=== PATIENT | male | born 1970 | race Caucasian/White ===

== ENCOUNTER 2016-08-23 08:28 | Day surgery (SDC) | payer BC, OTHER ==
--- NOTE | ~2016-08-23 | OP ---
Record Of Operation [facility] [address] [place]. [address] NAME: BONNIE BROWN : 70 STATUS : REG [facility] PAT#: [id number] AGE: 46 ADM/REG DATE : 08/23/16 MR#: [id number] REPORT SERV DATE: 08/23/16 DICTATED BY: MARLEEN MCFADDEN DATE: 08/23/16 REPORT STATUS : Draft TRANSCRIBED BY: MODL DATE: 08/23/16 DATE OF PROCEDURE: 08/23/2016 PROCEDURE: Bronchoscopy for bronchoalveolar lavage, tracheostomy change. PREOPERATIVE DIAGNOSIS: Chronic respiratory failure. POSTOPERATIVE DIAGNOSIS: Chronic respiratory failure. INDICATION FOR PROCEDURE: Surveillance bronchoscopy for chronic bronchitis, tracheostomy change, evaluation of subglottic stenosis. PROCEDURE NOTE: The patient was brought to the bronchoscopy suite. Anesthesia provided his sedation. Prior to procedure, the patient notes that he was only awake once using conscious sedation for these tracheostomy exchanges, however, requires to be given propofol. We began the procedure by evaluating the upper airway and subglottic area. He had significant amount of upper airway edema, actually quite difficult to find the vocal cords. However, the subglottic area did not have any significant stenosis. We then changed the tracheostomy to a 5.0 Shiley XLT proximal. We then conducted a bronchoscopy, the patient had findings of chronic bronchitis. We conducted a bronchoalveolar lavage of the right middle lobe, due to the size of bronchoscope, he clearly had leakage and this is most likely more considered a bronchial wash rather than a bronchoalveolar lavage. He tolerated the procedure well. OUTCOME: Successful bronchoscopy, upper airway examination, bronchoalveolar lavage-washing, and tracheostomy change. HFQ/JULYL Marleen Mcfadden MD / [id number] CC: MD Clayton Osorio M.D.
[~2016-08-23 08:28] MED LIST: ADDER10 PO; ADDERALL12.5 MG PO; ALPHAGAN P0.1 % OP; ALPHAGAN P0.1 % OPH; AMLACTIN12 % EX; ASA5GR PO; ASABAYER PO; BACDS PO; BISR PR; CARDCD240 PO; CELEXA20 PO; CENTRUM PO; CENTRUM TAB1 TAB PO; CITRACAL PO; CYANO1000T PO; DEPO-TESTOS100 MG/M1 IM; DEPO-TESTOS100 MG/ML IM; DUONEB INH; EFFEX37.5 PO; EFFEX75 PO; FERGON240 MG PO; FERROUS SULF325 M1 PO; FLEX PO; FOLIC ACID PO; FOLIC ACID400 MC1 PO; FOLIC PO; HEMOCYTE PO; HEMOCYTE324 MG PO; IRON325 MG PO; K-TABS10 MEQ PO; KLONO1 PO; L40 PO; L80 PO; LEVOTHYROXIN137 MCG PO; LEVOTHYROXIN150 MCG PO; LOP25 PO; MOBIC15 MG PO; MULTIPLE VIT PO; NORCO1 TA1 PO; PCET PO; PEP20 PO; PHENTERMINE37.5 MG PO; PR25 PO; PRILO PO; PRILOSEC40 MG PO; PRIM50B PO; PRIN10 PO; PROTONIX PO; REQUIP2 PO; T PO; TOPAMAX50 MG PO; TOPXL100 PO; TOPXL50 PO; ULTRAM50 PO; VIB100 PO; VISINE-A EYE AL15 ML OPH; VITAMIN B-121000 MC1 SL; VITAMIN B-1500 MG PO; VITAMIN D1000 UNI1 PO; VITAMIN D31000 UNIT PO; VITC500 PO; Z100 PO; Z5 PO; ZESTORETIC PO; ZESTORETIC1 TAB PO; ZITHROMAX500 MG PO; ZOL100 PO; [UNRECOGNIZED DRUG - REMARK] OP
[2016-08-23 08:48] LABS: HEMATOCRIT 30.2 % (40.0-51.0); HEMOGLOBIN 8.8 g/dL (13.6-17.8); MEAN CORPUS HGB CONC 29.1 g/dL (32.0-36.0); MEAN CORPUSCULAR HEMOGLOB 29.2 pg (26.0-34.0); MEAN PLATELET VOLUME 9.7 fL (9.2-13.0); RBC DISTRIBUTION WIDTH 16.3 % (12.0-16.0); RED CELL COUNT 3.01 10/6/uL (4.7-6.1)
[2016-08-23 08:54] LABS: INTERNATIONAL NORMAL RATI 1.2 UNITS (-); MANUAL DIFF YES %; MEAN CORPUSCULAR VOLUME 100.3 fL (80-100); PARTIAL THROMBO TIME 32.1 SEC (22.5-37.2); PLATELET COUNT 357 10/3/uL (150-400); PROTIME (NOT ORD) 14.6 SEC (12.0-14.5); WHITE BLOOD CELLS 11.8 10/3/uL (4.5-10.5)
[2016-08-23 09:04] LABS: CALCIUM, SERUM 7.9 MG/DL (8.5-10.4); CHLORIDE, SERUM 97 MMOL/L (96-112); CO2 (CARBON DIOXIDE) 30 MMOL/L (24-34); CREATININE 2.27 MG/DL (0.70-1.30); GFR AFRICAN AMERICAN 39 ML/MIN (>=60); GFR NON AFRICAN AMERICAN 33 ML/MIN (>=60); SODIUM, SERUM 141 MMOL/L (135-148)
[2016-08-23 09:05] LABS: BUN (BLOOD UREA NITROGEN) 28 MG/DL (6-23); GLUCOSE, SERUM 110 MG/DL (60-99); POTASSIUM, SERUM 3.5 MMOL/L (3.5-5.3)
[2016-08-23 11:16] LABS: BAND NEUTROPHILS 2 %; EOSINOPHILS 1 %; EOSINOPHILS ABSOLUTE (CALC) 0.12 10/3/uL (0.0-0.53); LYMPHOCYTES 18 %; LYMPHOCYTES ABSOLUTE (CALC) 2.12 10/3/uL (0.67-4.30); MONOCYTES 27 %; MONOCYTES ABSOLUTE (CALC) 3.19 10/3/uL (0.21-1.20); NEUTROPHILS ABSOLUTE (CALC) 6.37 10/3/uL (2.02-8.40); PLATELET ESTIMATE SLT INC (ADEQUATE); SEGMENTED NEUTROPHIL (0) 52 %; TOTAL NUCLEATED CELLS 100
[2016-08-23 11:17] LABS: ELLIPTOCYTES 1+ (3-10/OIF) (0-2/OIF); HYPOCHROMIA 1+ (3-10/OIF) (0-2/OIF); MACROCYTES 1+ (5-10/OIF) (0-5/OIF)
[2017-01-07] MEDS ORDERED: ADDERALL12.5 MG PO (03:20)
[2017-01-07] MEDS ORDERED: T PO (03:20)
[2017-01-07] MEDS ORDERED: Z100 PO (03:21)
[2017-01-07] MEDS ORDERED: ASABAYER PO (03:21)
[2017-01-07] MEDS ORDERED: L80 PO (03:23)
[2017-01-07] MEDS ORDERED: SYN.15 PO (03:24)
[2017-01-07] MEDS ORDERED: MULTIVIT/MIN PO (03:25)
[2017-01-07] MEDS ORDERED: VITC500 PO (03:25)
[2017-01-07] MEDS ORDERED: HEMOCYTE324 MG PO (03:30)
[2017-01-07] MEDS ORDERED: [UNRECOGNIZED DRUG - OTHER] PO (03:31)
[2017-01-07] MEDS ORDERED: CALCIUM PO (03:31)
[2017-01-07] MEDS ORDERED: CYANO1000T PO (03:32)
[2017-01-07] MEDS ORDERED: Z5 PO (03:33)
[2017-01-07] MEDS ORDERED: LOP100 PO (03:37)
[2017-01-07] MEDS ORDERED: KLONO1 PO (03:38)
[2017-01-07] MEDS ORDERED: KDUR10 PO (03:43)
[2017-01-07] MEDS ORDERED: ULTRAM50 PO (03:44)
[2017-01-07] MEDS ORDERED: ZOL50 PO (03:45)
[2017-01-07] MEDS ORDERED: FOLATE 400 MCG PO (03:47)
[2017-01-07] MEDS ORDERED: PEP20 PO (03:49)
[2017-01-07] MEDS ORDERED: MELATONIN5 M1 PO (03:49)
[2017-01-07] MEDS ORDERED: THIAMINE PO (03:51)
[2017-01-07] MEDS ORDERED: ZITHROMAX500 MG PO (03:52)
[2017-01-07] MEDS ORDERED: TESTOSTERONE IM (16:24)
[2017-01-07] MEDS ORDERED: SYN075 PO (16:25)
[2017-01-18] MEDS ORDERED: P10 PO (13:03)
[2017-01-18] MEDS ORDERED: BACTRIM DS1 TAB PO (13:03)
[2017-01-18] MEDS ORDERED: SPIRIVA INH (13:03)
[2017-01-18] MEDS ORDERED: ALBUTEROL5 INH (13:06)
[2017-01-18] MEDS ORDERED: FESO4 PO (13:07)
[2017-01-18] MEDS ORDERED: TESS PO (13:07)
[2017-01-18] MEDS ORDERED: DEXTROMETHORPHAN PO (13:12)
== END 2016-08-23 23:59 | disposition home or self-care (01) ==
LOC: DMU 08:28
PROVIDERS: Anesthesiology; Internal Medicine Critical Care Medicine
PROC: 0B9D8ZX Drainage of Right Middle Lung Lobe, Via Natural or Artificial Opening Endoscopic, Diagnostic (ICD-10-PCS; principal; 2016-08-23 11:00)
DX: J96.10 Chronic respiratory failure, unspecified whether with hypoxia or hypercapnia (principal); E66.01 Morbid (severe) obesity due to excess calories; J39.8 Other specified diseases of upper respiratory tract; I10 Essential (primary) hypertension; I50.9 Heart failure, unspecified; E03.9 Hypothyroidism, unspecified; G47.33 Obstructive sleep apnea (adult) (pediatric); D64.9 Anemia, unspecified; I13.0 Hypertensive heart and chronic kidney disease with heart failure and stage 1 through stage 4 chronic kidney disease, or unspecified chronic kidney disease; N18.9 Chronic kidney disease, unspecified; M10.9 Gout, unspecified; E66.2 Morbid (severe) obesity with alveolar hypoventilation; G25.81 Restless legs syndrome; Z88.0 Allergy status to penicillin; Z88.5 Allergy status to narcotic agent
CPT/HCPCS: 80048; 85025; 85610; 85730; 87015; 87070; 87077; 87102; 87116; 87186; 87205; 93005; J3010

== ENCOUNTER 2016-08-29 10:41 | Day surgery (SDC) | payer BC, OTHER ==
[2017-01-07] MEDS ORDERED: ADDERALL12.5 MG PO (03:20)
[2017-01-07] MEDS ORDERED: T PO (03:20)
[2017-01-07] MEDS ORDERED: ASABAYER PO (03:21)
[2017-01-07] MEDS ORDERED: Z100 PO (03:21)
[2017-01-07] MEDS ORDERED: L80 PO (03:23)
[2017-01-07] MEDS ORDERED: SYN.15 PO (03:24)
[2017-01-07] MEDS ORDERED: VITC500 PO (03:25)
[2017-01-07] MEDS ORDERED: MULTIVIT/MIN PO (03:25)
[2017-01-07] MEDS ORDERED: HEMOCYTE324 MG PO (03:30)
[2017-01-07] MEDS ORDERED: [UNRECOGNIZED DRUG - OTHER] PO (03:31)
[2017-01-07] MEDS ORDERED: CALCIUM PO (03:31)
[2017-01-07] MEDS ORDERED: CYANO1000T PO (03:32)
[2017-01-07] MEDS ORDERED: Z5 PO (03:33)
[2017-01-07] MEDS ORDERED: LOP100 PO (03:37)
[2017-01-07] MEDS ORDERED: KLONO1 PO (03:38)
[2017-01-07] MEDS ORDERED: KDUR10 PO (03:43)
[2017-01-07] MEDS ORDERED: ULTRAM50 PO (03:44)
[2017-01-07] MEDS ORDERED: ZOL50 PO (03:45)
[2017-01-07] MEDS ORDERED: FOLATE 400 MCG PO (03:47)
[2017-01-07] MEDS ORDERED: MELATONIN5 M1 PO (03:49)
[2017-01-07] MEDS ORDERED: PEP20 PO (03:49)
[2017-01-07] MEDS ORDERED: THIAMINE PO (03:51)
[2017-01-07] MEDS ORDERED: ZITHROMAX500 MG PO (03:52)
[2017-01-07] MEDS ORDERED: TESTOSTERONE IM (16:24)
[2017-01-07] MEDS ORDERED: SYN075 PO (16:25)
[2017-01-18] MEDS ORDERED: SPIRIVA INH (13:03)
[2017-01-18] MEDS ORDERED: BACTRIM DS1 TAB PO (13:03)
[2017-01-18] MEDS ORDERED: P10 PO (13:03)
[2017-01-18] MEDS ORDERED: ALBUTEROL5 INH (13:06)
[2017-01-18] MEDS ORDERED: FESO4 PO (13:07)
[2017-01-18] MEDS ORDERED: TESS PO (13:07)
[2017-01-18] MEDS ORDERED: DEXTROMETHORPHAN PO (13:12)
== END 2016-08-29 18:56 | disposition home or self-care (01) ==
LOC: IMGHOLD 10:41 → RADHOLD 13:12
PROVIDERS: Anesthesiology
PROC: B03BZZZ Magnetic Resonance Imaging (MRI) of Spinal Cord (ICD-10-PCS; principal; 2016-08-29)
PROC: B030ZZZ Magnetic Resonance Imaging (MRI) of Brain (ICD-10-PCS; 2016-08-29)
DX: M54.42 Lumbago with sciatica, left side (principal); M54.41 Lumbago with sciatica, right side; I10 Essential (primary) hypertension; E66.9 Obesity, unspecified; E07.9 Disorder of thyroid, unspecified; F90.9 Attention-deficit hyperactivity disorder, unspecified type; F32.9 Major depressive disorder, single episode, unspecified; M81.0 Age-related osteoporosis without current pathological fracture; M10.9 Gout, unspecified; N28.9 Disorder of kidney and ureter, unspecified; F43.10 Post-traumatic stress disorder, unspecified; G47.30 Sleep apnea, unspecified; K21.9 Gastro-esophageal reflux disease without esophagitis; F41.9 Anxiety disorder, unspecified; Z90.49 Acquired absence of other specified parts of digestive tract; Z98.890 Other specified postprocedural states; Z88.1 Allergy status to other antibiotic agents; Z88.5 Allergy status to narcotic agent; Z88.2 Allergy status to sulfonamides
CPT/HCPCS: 70551; 72148; J2250; J3010

== ENCOUNTER 2016-09-09 17:41 | Inpatient (IN) | payer BC, OTHER ==
--- NOTE | ~2016-09-09 | HP ---
History And Physical [place] [address] [facility] [place]. [address] NAME: BONNIE BROWN : 70 STATUS : ADM [place] PAT#: [id number] AGE: 46 ADM/REG DATE : 09/09/16 MR#: [id number] REPORT SERV DATE: 09/10/16 DICTATED BY: SHERRY MARROQUIN DATE: 09/09/16 REPORT STATUS : Draft TRANSCRIBED BY: MODL DATE: 09/09/16 DATE OF ADMISSION: 09/09/2016 REASON FOR ADMISSION: Complication of tracheostomy. HISTORY OF PRESENT ILLNESS: Mr. Brown is a 46-year-old male with obesity with sleep apnea, hypoventilation syndrome with chronic tracheostomy. He has actually had it replaced 18 times. He has had course complicated also by cor pulmonale, chronic anasarca, and frequent stasis dermatitis wounds with associated cellulitis. At [facility] today with the tracheostomy having come out again once again accidentally, unable to be replaced by the emergency department and he is referred here to be seen by Pulmonology. This particular trach was a 5.0 XLT and has only been in for 2 weeks after being placed by Dr. Mcfadden. He has had a nonproductive cough without phlegm, without bleeding. It has required higher oxygen than usual since the tracheostomy came out, but does not feel short of breath at this time. He denies any chest pain. Denies abdominal pain. No nausea or vomiting. Does however have chronic leg pain, chronic wounds in his legs, difficulty sleeping in fact he sleeps in a chair most of the time and the legs have become more swollen. He has his dressings changed twice weekly. He denies any bleeding. Denies any neurological deficits other than some hand numbness which sounds like carpal tunnel syndrome. REVIEW OF SYSTEMS: Negative. PAST MEDICAL HISTORY: As mentioned above. MEDICATIONS: 1. Adderall. 2. Tylenol. 3. Allopurinol. 4. Aspirin. 5. Calcium. 6. Klonopin. 7. Testosterone. 8. Iron. 9. Lasix. 10.Synthroid. 11.Metolazone. 12.Metoprolol. 13.Multivitamins. 14.Potassium. 15.Pepcid. 16.Zoloft. 17.Tramadol. 18.Numerous vitamins and mineral supplements. ALLERGIES: TO PENICILLIN, ATIVAN, MORPHINE, BACTRIM, AND CEPHALOSPORINS. History And Physical [address] [address] NAME: BONNIE BROWN : [birth year] STATUS : ADM Anton PAT#: [id number] AGE: 46 ADM/REG DATE : 09/09/16 MR#: [id number] REPORT SERV DATE: 09/10/16 DICTATED BY: SHERRY MARROQUIN DATE: 09/09/16 REPORT STATUS : Draft TRANSCRIBED BY: DANYELLE DATE: 09/09/16 FAMILY HISTORY: Positive for chronic kidney disease. SOCIAL HISTORY: The patient has no tobacco, alcohol, or drug history. He is , but lives with his mother. PHYSICAL EXAMINATION: VITAL SIGNS: On presentation, blood pressure 140/73, pulse 112, respiratory rate 20, afebrile. GENERAL: Comfortable, but morbidly obese white male. Alert and oriented x3, in no apparent distress. HEENT: Pupils equal, round, and reactive to light. Extraocular movements are intact. No cranial nerve deficits. Moist mucous membranes. Very crowded oropharynx. NECK: Revealed the tracheostomy site is only a small hole, but no associated discharge. Unable to assess jugular venous pulsations. CARDIAC: Regular rate and rhythm. No murmurs, gallops, or rubs. LUNGS: Clear to auscultation bilaterally. Poor excursion. ABDOMEN: Obese, nontender, and nondistended. Bowel sounds normoactive. There was pale striae noted on his flanks. EXTREMITIES: Revealed 3+ edema despite Cuna boots. He had skin breakdown and erythema proximal to the boots. He had good pulses and capillary refill in his toes distally. NEUROLOGIC: Normal sensory motor function in all four extremities grossly. SKIN: Warm and dry. PSYCHIATRIC: He is appropriate. LABORATORY EVALUATION: Pending at this time. Chest x-ray is pending. ASSESSMENT/PLAN: 1. Tracheostomy complication. Pulmonology will see him regarding replacement of the tracheostomy. X-ray will be checked, I do not anticipate any antibiotic therapy or other issues. He will only be admitted for observation status. 2. Sleep apnea, obesity hypoventilation syndrome with cor pulmonale due to his morbid obesity. The patient has skin breakdown and wound of his legs, he is scheduled to have his bandages changed tomorrow. Anyway I will go ahead and plan on undressing those and resuming, but a diuretic infusion will be given overnight changing over to Demadex which is likely to be much better absorbed in this morbidly obese man. Obviously the main culprit however is his body positioning, sleeping in a chair makes effective diuresis management of these wounds nearly impossible. 3. History of iron deficiency anemia. The patient is on oral iron supplement, we will check his iron levels. He may or may not benefit from that any further. Intravenous iron will be more effective than p.o. ELIJAH/DANYELLE Sherry Grijalva History And Physical [address] [address] NAME: BONNIE BROWN : 70 STATUS : ADM Anton PAT#: [id number] AGE: 46 ADM/REG DATE : 09/09/16 MR#: [id number] REPORT SERV DATE: 09/10/16 DICTATED BY: SHERRY MARROQUIN DATE: 09/09/16 REPORT STATUS : Draft TRANSCRIBED BY: DANYELLE DATE: 09/09/16 Isabelle Marroquin / [id number] CC: Isabelle Zarate M.D. Nathan B. Wyatt, MD John Gwin Jr., M.D.
--- NOTE | ~2016-09-09 | EGD ---
EGD REPORT [facility] [address] [address] NAME: CHRIS BROWN : 70 STATUS : ADM Anton PAT#: [id number] AGE: 46 ADM/REG DATE : 09/09/16 MR#: [id number] REPORT SERV DATE: 09/10/16 DICTATED BY: ОЛЬГА MARTINEZ DATE: 09/10/16 REPORT STATUS : Draft [facility]: [facility] DATE: 09/10/16 Pulmonology Patient Name: Chris Brown Procedure Date: 09/10/2016 1:16 PM Date of : 1970 Attending MD: MAX MARTINEZ MD Procedure Date No Time: 09/10/2016 Procedure: Flexible rigid bronchoscopy Indications: Tracheal stenosis, tracheostomy dislodgement, unable to place 50 Proximal XLT into by the bedside. Providers: MAX MARTINEZ MD Referring MD: TUSHAR LOPEZ Medicines: Lidocaine 2% 20 mL Complications: No immediate complications Procedure: Pre-Anesthesia Assessment: - A History and Physical has been performed. Patient meds and allergies have been reviewed. The risks and benefits of the procedure and the sedation options and risks were discussed with the patient. All questions were answered and informed consent was obtained. Patient identification and proposed procedure were verified prior to the procedure by the physician and the nurse in the procedure room. Mental Status Examination: alert and oriented. Airway Examination: Mallampati Class IV (tongue obstructs view of the soft palate). Respiratory Examination: poor air movement. CV Examination: normal and RRR, no murmurs, no S3 or S4. ASA Grade Assessment: IV - A patient with severe systemic disease that is a constant threat to life. After reviewing the risks and benefits, the patient was deemed in satisfactory condition to undergo the procedure. The anesthesia plan was to use general anesthesia. Immediately prior to administration of medications, the patient was re-assessed for adequacy to receive sedatives. The heart rate, respiratory rate, oxygen saturations, blood pressure, adequacy of pulmonary ventilation, and response to care were monitored throughout the procedure. The physical status of the patient was re-assessed after the procedure. After obtaining informed consent, the BF [id number] was introduced through the mouth, via laryngeal mask airway and advanced to the tracheobronchial tree. the BF [id number] was introduced through the tracheostomy and advanced to the tracheobronchial tree. the BF [id number] was introduced through the rigid bronchoscope (after telescope was removed) and advanced EGD REPORT [address] [address] NAME: CHRIS BROWN : 70 STATUS : ADM Anton PAT#: [id number] AGE: 46 ADM/REG DATE : 09/09/16 MR#: [id number] REPORT SERV DATE: 09/10/16 DICTATED BY: ОЛЬГА MARTINEZ DATE: 09/10/16 REPORT STATUS : Draft TRANSCRIBED BY: [facility] DATE: 09/10/16 to the tracheobronchial tree. The procedure was accomplished without difficulty. The patient tolerated the procedure well. Findings: The laryngeal mask airway is in normal position. The vocal cords move normally with breathing. The subglottic space is slightly stenosed in its diameter. The stoma was dilated with a CRE balloon to 8 mm OD without complication. A 6.0 ETT tube could not be passed. A 4.0 ETT was easily passed through the airway. Granulation tissue at the stoma was biopsied and sent for histopathology. The patient was then reintubated with a 12 mm rigid Dumon bronchoscope in the usual atraumatic fashion. The airway was dilated using the rigid bronchoscope and a 10-11-12 [employer] CRE balloon to 12 mm OD. Using a Blue Rhino kit, the stoma was then dilated to 32 Jordanian under direct visualized and a 5.0 Proximal XLT was passed with ease and secured. Impression: Flexible Rigid Bronchoscopy for airway and stoma dilation and 5.0 proximal XLT placement. Recommendation: - Await test results. - Follow up with bronchoscopist tomorrow. - Follow up with [facility], Dr. Tushar Eng Attending Participation: I personally performed the entire procedure. MAX MARTINEZ MD 09/10/2016 2:32 PM This report has been signed electronically. Number of Addenda: 0 Note Initiated On: 09/10/2016 1:16 PM [address] [address]
--- NOTE | ~2016-09-09 | DS ---
Discharge Summary [facility] [address] [facility] [place]. [address] NAME: BONNIE BROWN : 70 STATUS : DIS Anton PAT#: [id number] AGE: 46 ADM/REG DATE : 09/09/16 MR#: [id number] REPORT SERV DATE: 09/12/16 DICTATED BY: ROSE LOWE DATE: 09/11/16 REPORT STATUS : Draft TRANSCRIBED BY: MODL DATE: 09/11/16 ADMISSION DATE: 09/09/2016 DISCHARGE DATE: 09/11/2016 REASON FOR ADMISSION: Tracheostomy complication. HISTORY OF PRESENT ILLNESS: Please refer to Dr. Tamez's history and physical dated 09/09/2016 for complete details regarding the patient's admission. The patient was admitted to the Hospitalist Service for management of his trach complication. The patient initially presented to [facility] having accidentally removed his trach as a blanket got caught on a portion of it. Went to [facility], they were unable to place his trach, and therefore, the patient was sent to [facility] for further evaluation. The patient has had multiple trachs placed in the past. The last trach being placed [address] Mcfadden. At this time, Dr. Ha was on pulmonary consult, evaluated the patient and Dr. Ha was unable to place a 50 proximal XLT at the bedside. Therefore, the patient was taken to the endoscopy suite, reintubated with a 12 mm rigid bronchoscope in an atraumatic fashion. Airway was dilated using a rigid bronchoscope. The stoma was then dilated and a 5.0 proximal XLT was passed with ease and secured. The patient was monitored overnight. He had a little bit of secretions through his trach which was easily suctioned out. He was weaned down to his baseline of 3 L nasal cannula saturating 99%. He is stable to be discharged. He was discharged in stable condition to follow up with Dr. Ha along with Dr. Gray today as he has already scheduled outpatient appointment. DISCHARGE DIAGNOSES: Trach complication, now with replacement of a new trach; tracheal stenosis; obesity; hypoventilation syndrome; obstructive sleep apnea; morbid obesity; chronic hypoxic respiratory failure, 3 L nasal cannula; history of iron-deficiency anemia; chronic kidney disease stage 3, and hypothyroidism. PROCEDURES: Include trach replacement. CONSULTATION: Dr. Ha. DISCHARGE MEDICATIONS: Include allopurinol 100 mg with lunch, Adderall 12.5 mg twice a day, aspirin 325 mg once a day, famotidine 40 mg every evening, levothyroxine 150 mcg before breakfast, melatonin p.r.n., Zaroxolyn 5 mg after lunch, Lasix 80 mg with lunch, potassium Klor-Con 10 mEq daily, sertraline 150 mg daily, Klonopin 1 mg daily, Zithromax 500 mg every day for long-term therapy, Tylenol p.r.n., calcium citrate daily, ferrous fumarate 648 mg every morning, multivitamin daily, Ultram p.r.n., vitamin B12 daily, vitamin C daily, vitamin B after lunch, folic acid 1 mg after lunch, and metoprolol tartrate 100 mg once a day. PAMELLA/DANYELLE Rose Lawrence Discharge Summary [address] [address] NAME: BONNIE BROWN : 70 STATUS : DIS Anton PAT#: [id number] AGE: 46 ADM/REG DATE : 09/09/16 MR#: [id number] REPORT SERV DATE: 09/12/16 DICTATED BY: ROSE LOWE DATE: 09/11/16 REPORT STATUS : Draft TRANSCRIBED BY: DANYELLE DATE: 09/11/16 MD Sonya / [id number] CC: MD Tom Gonzalez D.O.
--- NOTE | ~2016-09-09 | CN ---
Consultation Report [facility] [address] [facility] [place]. [address] NAME: CHRIS BROWN : 70 STATUS : ADM Anton PAT#: [id number] AGE: 46 ADM/REG DATE : 09/09/16 MR#: [id number] REPORT SERV DATE: 09/10/16 DICTATED BY: NOE MARTINEZ DATE: 09/10/16 REPORT STATUS : Draft TRANSCRIBED BY: MODDamien DATE: 09/10/16 CONSULTATION DATE OF CONSULTATION: Dear Dr. Tamez: Thank you for requesting my opinion regarding evaluation and management of Mr. Chris Brown's major complex airways. Mr. Brown is a 46-year-old gentleman, well known to me with a significant past medical history of obstructive sleep apnea, obesity hypoventilation syndrome with chronic tracheostomy, who presented to the [facility] yesterday with his tracheostomy being dislodged once again. The ER physician contacted me and stated that his proximal XLT trach had been in place for only two weeks after being placed by Dr. Mcfadden. He denied any significant shortness of breath, nausea, vomiting, diarrhea, or constipation. He has had multiple issues regarding his tracheostomy, complicated by subglottic stenosis and repeated tracheostomy exchanges, requiring general anesthesia. Other issues are that he has chronic leg pain and chronic wounds on his legs, and he sleeps mostly in a chair. REVIEW OF SYSTEMS: A detailed 14-point review of systems was completed. Pertinent positives and negatives are listed above. PAST MEDICAL HISTORY: 1. Respiratory failure secondary to VALERIO and OHS, status post prolonged mechanical ventilation, complicated by suprastomal granulation tissue. The patient underwent St T-tube placement, which was removed. Suprastomal stenosis is secondary to post-intubation tracheal stenosis. His normal tracheostomy size is a 5.0 proximal XLT Shiley Covidien trach. 2. Morbid obesity. 3. Deconditioning. 4. Intertrigo. 5. Chronic home O2 dependence and nocturnal BiPAP, chronic respiratory failure. 6. Hypothyroidism. 7. Anemia. 8. Acid reflux disease. PAST SURGICAL HISTORY: As above. Prior history of PEG placement and central venous catheter insertion. ALLERGIES: PENICILLIN, LORAZEPAM, AND MORPHINE. HOME MEDICATIONS: Reviewed and located in the paper chart. Consultation Report [facility] [address] [place]. [address] NAME: CHRIS BROWN : 70 STATUS : ADM Anton PAT#: [id number] AGE: 46 ADM/REG DATE : 09/09/16 MR#: [id number] REPORT SERV DATE: 09/10/16 DICTATED BY: NOE MARTINEZ DATE: 09/10/16 REPORT STATUS : Draft TRANSCRIBED BY: MODL DATE: 09/10/16 SOCIAL HISTORY: The patient is a lifelong nonsmoker. He denies any significant alcohol or illicit drug abuse. He has been a long-term patient of my partner, Dr. Og. FAMILY HISTORY: Renal failure. PHYSICAL EXAMINATION: VITAL SIGNS: Reviewed. Afebrile, T current of 97.4, pulse of 100, respirations 20 per minute on 10 L trach mask, blood pressure 134/62 on FiO2 of 60%. GENERAL: Morbidly obese, chronically ill-appearing gentleman. The patient's stoma appears to be reduced in size without the tracheostomy in place. The patient is clearly able to phonate with a strong voice. NECK: No significant trauma or hemorrhage noted at the site of the prior ER physician's attempts at placing tracheostomy. HEENT: Posterior oropharynx is clear. CARDIOVASCULAR: Regular rate and rhythm. S1 and S2 present. LUNGS: Diminished breath sounds bilaterally. Air is leaking from the tracheostomy site. ABDOMEN. Protuberant, nontender, nondistended, soft. Positive bowel sounds. EXTREMITIES: Edematous and large with venous stasis changes. SKIN: No new rashes, lesions, or ulcers. PSYCHIATRIC: Alert and oriented x3. Appropriate mood and affect. Appropriate insight and judgment. NEUROLOGIC: 5/5 strength in upper and lower extremities. Cranial nerves 2 through 12 intact. Gait not tested. DTRs not performed. LABORATORY DATA: White count of 6, hemoglobin of 8.3, platelet count of 257. INR 1.1, PTT of 27.5. Creatinine of 1.22. The patient's potassium has been repleted. IMAGING: Chest x-ray on 09/09/2016, dense cardiomegaly, shallow inspiration, but no obvious acute cardiopulmonary disease. ASSESSMENT AND PLAN: Mr. Chris Brown is a 46-year-old gentleman with a significant past medical history of obstructive sleep apnea, post-intubation tracheal stenosis, status post St T-tube placement, and subsequent 5.0 proximal XLT trach, complicated by repeated procedures requiring tracheostomy exchange, who presents to [facility] as a transfer from [facility] with a dislodged tracheostomy. The outside ER physician attempted to place the trach, but ran into too much "scar tissue." At this point, it is unclear whether the stoma has decreased in size, but appears visibly puckered. There was no obvious edema or trauma noted at this time. The patient is able to completely phonate, and prior bronchoscopy images were reviewed and discussed. The patient's subglottic stenosis appears to be resolved as compared to the prior interventions by me. At this point, Mr. Brown needs cautious tracheostomy placement. He will require a flex and rigid bronchoscopy and possible tracheal dilation and stoma revision to allow for the tracheostomy to be placed. The patient is aware that the procedure is associated with potential life-threatening complications including loss of the airways; life-threatening Consultation Report [address] [place]. [address] NAME: CHRIS BROWN : 70 STATUS : ADM Anton PAT#: [id number] AGE: 46 ADM/REG DATE : 09/09/16 MR#: [id number] REPORT SERV DATE: 09/10/16 DICTATED BY: NOE MARTINEZ DATE: 09/10/16 REPORT STATUS : Draft TRANSCRIBED BY: DANYELLE DATE: 09/10/16 bleeding; lung collapse; respiratory failure; airway tear; injury to the mouth, lips, teeth, gums, posterior oropharynx, neighboring organs; and life-threatening cardiopulmonary arrest. We will attempt to replace the proximal 5.0 XLT trach at the close of the case. A summary of my recommendations are as follows: Proceed with flexible and rigid bronchoscopy and tracheostomy replacement. The patient may require further airway interventions to help place the tracheostomy if there is scar tissue or tracheal stenosis present. Thank you for allowing me to participate in Mr. Brown's care. Plan was discussed with the patient's mother. EVELINA/DANYELLE Noe Martinez M.D. / [id number] CC: Edward Hassan MD
[2016-09-09] MEDS ORDERED: Z100 PO (18:43)
[2016-09-09] MEDS ORDERED: ADDERALL12.5 MG PO (18:43)
[2016-09-09] MEDS ORDERED: T PO (18:43)
[2016-09-09] MEDS ORDERED: ASA5GR PO (18:44)
[2016-09-09] MEDS ORDERED: ZITHROMAX500 MG PO (18:44)
[2016-09-09] MEDS ORDERED: CALCIUM CITRATE +D PO (18:46)
[2016-09-09] MEDS ORDERED: HEMOCYTE324 MG PO (18:46)
[2016-09-09] MEDS ORDERED: KLONO1 PO (18:46)
[2016-09-09] MEDS ORDERED: Z5 PO (18:47)
[2016-09-09] MEDS ORDERED: LEVOTHYROXIN150 MCG PO (18:47)
[2016-09-09] MEDS ORDERED: L80 PO (18:47)
[2016-09-09] MEDS ORDERED: LOP100 PO (18:47)
[2016-09-09] MEDS ORDERED: KLOR-CON 1010 MEQ PO (18:48)
[2016-09-09] MEDS ORDERED: PEP20 PO (18:48)
[2016-09-09] MEDS ORDERED: MULTIVIT/MIN PO (18:48)
[2016-09-09] MEDS ORDERED: ULTRAM50 PO (18:49)
[2016-09-09] MEDS ORDERED: ZOL100 PO (18:49)
[2016-09-09] MEDS ORDERED: VITAMIN B-121000 MC1 PO (18:50)
[2016-09-09] MEDS ORDERED: VITAMIN B-1 PO (18:50)
[2016-09-09] MEDS ORDERED: VITC500 PO (18:50)
[2016-09-09] MEDS ORDERED: FOLIC ACID400 MC1 PO (18:51)
[2016-09-09] MEDS ORDERED: MELATONIN5 M1 PO (18:51)
[2016-09-09] MEDS ORDERED: TOPXL100 PO (18:54)
[2016-09-09 20:06] LABS: BASOPHILS 0 %; EOSINOPHILS 0.8 %; EOSINOPHILS ABSOLUTE 0.05 10/3/uL (0.0-0.53); HEMATOCRIT 27.8 % (40.0-51.0); HEMOGLOBIN 8.3 g/dL (13.6-17.8); IMMATURE GRANULOCYTES 0.5 %; IMMATURE GRANULOCYTES ABSOLUTE 0.03 10/3/uL (0.0-0.11); LYMPHOCYTES 24.2 %; LYMPHOCYTES ABSOLUTE 1.59 10/3/uL (0.67-4.30); MANUAL DIFF NO %; MEAN CORPUS HGB CONC 29.9 g/dL (32.0-36.0); MEAN CORPUSCULAR HEMOGLOB 29.2 pg (26.0-34.0); MEAN CORPUSCULAR VOLUME 97.9 fL (80-100); MEAN PLATELET VOLUME 10.7 fL (9.2-13.0); MONOCYTES 15.1 %; MONOCYTES ABSOLUTE 0.99 10/3/uL (0.21-1.20); NEUTROPHILS 59.4 %; NEUTROPHILS ABSOLUTE 3.91 10/3/uL (2.02-8.40); PLATELET COUNT 257 10/3/uL (150-400); RBC DISTRIBUTION WIDTH 15.8 % (12.0-16.0); RED CELL COUNT 2.84 10/6/uL (4.7-6.1); WHITE BLOOD CELLS 6.6 10/3/uL (4.5-10.5)
[2016-09-09 20:22] LABS: % IRON SAT 10 % (20-50); A/G RATIO 0.6 (0.7-1.9); ALBUMIN 2.7 G/DL (3.5-5.0); ALKALINE PHOSPHATASE 115 U/L (45-117); CALCIUM, SERUM 8.4 MG/DL (8.5-10.4); CHLORIDE, SERUM 103 MMOL/L (96-112); CO2 (CARBON DIOXIDE) 32 MMOL/L (24-34); FERRITIN 206 NG/ML (26-388); GFR AFRICAN AMERICAN 68 ML/MIN (>=60); GFR NON AFRICAN AMERICAN 58 ML/MIN (>=60); GLOBULIN 4.8 G/DL (2.5-4.1); GLUCOSE, SERUM 100 MG/DL (60-99); IRON BINDING CAPACITY 223 MCG/DL (250-450); IRON, SERUM 22 MCG/DL (35-150); POTASSIUM, SERUM 3.4 MMOL/L (3.5-5.3); SGOT(AST) 12 U/L (5-40); SGPT(ALT) 15 U/L (5-65); SODIUM, SERUM 144 MMOL/L (135-148); TOTAL BILIRUBIN 0.2 MG/DL (0-1.2); TOTAL PROTEIN 7.5 G/DL (6.0-8.5)
[2016-09-09 20:23] LABS: BUN (BLOOD UREA NITROGEN) 16 MG/DL (6-23); CREATININE 1.43 MG/DL (0.70-1.30)
[2016-09-10 05:02] LABS: BUN (BLOOD UREA NITROGEN) 14 MG/DL (6-23); CALCIUM, SERUM 8.1 MG/DL (8.5-10.4); CHLORIDE, SERUM 103 MMOL/L (96-112); CO2 (CARBON DIOXIDE) 31 MMOL/L (24-34); CREATININE 1.22 MG/DL (0.70-1.30); GFR AFRICAN AMERICAN 82 ML/MIN (>=60); GFR NON AFRICAN AMERICAN 71 ML/MIN (>=60); GLUCOSE, SERUM 109 MG/DL (60-99); POTASSIUM, SERUM 3.1 MMOL/L (3.5-5.3); SODIUM, SERUM 143 MMOL/L (135-148)
[2016-09-10 09:49] LABS: INTERNATIONAL NORMAL RATI 1.1 UNITS (-); PARTIAL THROMBO TIME 27.5 SEC (22.5-37.2); PROTIME (NOT ORD) 14.2 SEC (12.0-14.5)
[2016-09-10 15:12] LABS: ALLENS TEST Pos; BE (BASE EXCESS) 6.3 MEQ/L (0 +/- 2.5); CARBOXYHEMOGLOBIN 0.2 % (0-3); HCO3 (ACTUAL BICARBONATE) 37.5 MEQ/L (23-27); HEMOBLOGIN CONTENT 10.4 G/DL (14-18); INSTRUMENT SERIAL # 11843; METHEMOGLOBIN 0.4 % (0-3); O2 CONTENT 14.3 VOL% (18-24); OPERATOR ID 32214; PCO2 (CO2 TENSION) 106 MMHG (35-45); PO2 (O2 TENSION) 118 MMHG (79-93); SAMPLE Arterial; pH 7.17 (7.37-7.43)
[2017-01-07] MEDS ORDERED: T PO (03:20)
[2017-01-07] MEDS ORDERED: ADDERALL12.5 MG PO (03:20)
[2017-01-07] MEDS ORDERED: ASABAYER PO (03:21)
[2017-01-07] MEDS ORDERED: Z100 PO (03:21)
[2017-01-07] MEDS ORDERED: L80 PO (03:23)
[2017-01-07] MEDS ORDERED: SYN.15 PO (03:24)
[2017-01-07] MEDS ORDERED: MULTIVIT/MIN PO (03:25)
[2017-01-07] MEDS ORDERED: VITC500 PO (03:25)
[2017-01-07] MEDS ORDERED: HEMOCYTE324 MG PO (03:30)
[2017-01-07] MEDS ORDERED: CALCIUM PO (03:31)
[2017-01-07] MEDS ORDERED: [UNRECOGNIZED DRUG - OTHER] PO (03:31)
[2017-01-07] MEDS ORDERED: CYANO1000T PO (03:32)
[2017-01-07] MEDS ORDERED: Z5 PO (03:33)
[2017-01-07] MEDS ORDERED: LOP100 PO (03:37)
[2017-01-07] MEDS ORDERED: KLONO1 PO (03:38)
[2017-01-07] MEDS ORDERED: KDUR10 PO (03:43)
[2017-01-07] MEDS ORDERED: ULTRAM50 PO (03:44)
[2017-01-07] MEDS ORDERED: ZOL50 PO (03:45)
[2017-01-07] MEDS ORDERED: FOLATE 400 MCG PO (03:47)
[2017-01-07] MEDS ORDERED: PEP20 PO (03:49)
[2017-01-07] MEDS ORDERED: MELATONIN5 M1 PO (03:49)
[2017-01-07] MEDS ORDERED: THIAMINE PO (03:51)
[2017-01-07] MEDS ORDERED: ZITHROMAX500 MG PO (03:52)
[2017-01-07] MEDS ORDERED: TESTOSTERONE IM (16:24)
[2017-01-07] MEDS ORDERED: SYN075 PO (16:25)
[2017-01-18] MEDS ORDERED: P10 PO (13:03)
[2017-01-18] MEDS ORDERED: BACTRIM DS1 TAB PO (13:03)
[2017-01-18] MEDS ORDERED: SPIRIVA INH (13:03)
[2017-01-18] MEDS ORDERED: ALBUTEROL5 INH (13:06)
[2017-01-18] MEDS ORDERED: FESO4 PO (13:07)
[2017-01-18] MEDS ORDERED: TESS PO (13:07)
[2017-01-18] MEDS ORDERED: DEXTROMETHORPHAN PO (13:12)
== END 2016-09-11 15:37 | disposition home or self-care (01) | DRG 167 ==
LOC: 7NO 17:41
PROVIDERS: Internal Medicine
PROC: 0B718ZZ Dilation of Trachea, Via Natural or Artificial Opening Endoscopic (ICD-10-PCS; 2016-09-10)
PROC: 0B21XFZ Change Tracheostomy Device in Trachea, External Approach (ICD-10-PCS; 2016-09-10)
PROC: 0BB18ZX Excision of Trachea, Via Natural or Artificial Opening Endoscopic, Diagnostic (ICD-10-PCS; principal; 2016-09-10 13:40)
DX: J95.03 Malfunction of tracheostomy stoma (principal); J96.11 Chronic respiratory failure with hypoxia; I27.81 Cor pulmonale (chronic); E66.2 Morbid (severe) obesity with alveolar hypoventilation; Z68.44 Body mass index [BMI] 60.0-69.9, adult; G47.33 Obstructive sleep apnea (adult) (pediatric); E03.9 Hypothyroidism, unspecified; L30.4 Erythema intertrigo; K21.9 Gastro-esophageal reflux disease without esophagitis; J39.8 Other specified diseases of upper respiratory tract; I87.2 Venous insufficiency (chronic) (peripheral); D50.9 Iron deficiency anemia, unspecified; Z88.1 Allergy status to other antibiotic agents; Z99.81 Dependence on supplemental oxygen; Z88.8 Allergy status to other drugs, medicaments and biological substances; Z88.5 Allergy status to narcotic agent; Z88.0 Allergy status to penicillin
CPT/HCPCS: 31720; 36600; 71010; 71020; 80048; 80053; 82728; 82805; 83540; 83550; 83735; 85025; 85610; 85730; 88305; 94002; 94640; A9270-GY; C1726; J1940; J2250; J2370; J2405; J3010; J3370

== ENCOUNTER 2016-09-23 08:04 | Day surgery (SDC) | payer BC, OTHER ==
--- NOTE | ~2016-09-23 | EGD ---
EGD REPORT [facility] [address] [address] NAME: CHRIS BROWN : [birth year] STATUS : REG [facility]#: [id number] AGE: 46 ADM/REG DATE : 09/23/16 MR#: [id number] REPORT SERV DATE: 09/23/16 DICTATED BY: ОЛЬГА MARTINEZ DATE: 09/23/16 REPORT STATUS : Draft TRANSCRIBED BY: [employer] DATE: 09/23/16 Pulmonology Patient Name: Chris Brown Procedure Date: 09/23/2016 9:10 AM Date of : 1970 Attending MD: MAX MARTINEZ MD Procedure Date No Time: 09/23/2016 Procedure: Bronchoscopy Indications: Increased secretions, worsening shortness of breath, s/p recent tracheal intervention Providers: MAX MARTINEZ MD Referring MD: TUSHAR YANEZ Medicines: Lidocaine 2% 20 mL Complications: No immediate complications Procedure: Pre-Anesthesia Assessment: - A History and Physical has been performed. Patient meds and allergies have been reviewed. The risks and benefits of the procedure and the sedation options and risks were discussed with the patient. All questions were answered and informed consent was obtained. Patient identification and proposed procedure were verified prior to the procedure by the physician and the nurse in the procedure room. Mental Status Examination: alert and oriented. Airway Examination: normal oropharyngeal airway. Respiratory Examination: poor air movement. CV Examination: normal and RRR, no murmurs, no S3 or S4. ASA Grade Assessment: IV - A patient with severe systemic disease that is a constant threat to life. After reviewing the risks and benefits, the patient was deemed in satisfactory condition to undergo the procedure. The anesthesia plan was to use general anesthesia. Immediately prior to administration of medications, the patient was re-assessed for adequacy to receive sedatives. The heart rate, respiratory rate, oxygen saturations, blood pressure, adequacy of pulmonary ventilation, and response to care were monitored throughout the procedure. The physical status of the patient was re-assessed after the procedure. After obtaining informed consent, the BF [id number] was introduced through the tracheostomy tube and advanced to the tracheobronchial tree. The procedure was accomplished without difficulty. The patient tolerated the procedure well. Findings: The tracheal stoma is normal. The trachea is of normal caliber. The EGD REPORT [address] [address] NAME: CHRIS BROWN : [birth year] STATUS : REG [facility] [place] PAT#: [id number] AGE: 46 ADM/REG DATE : 09/23/16 MR#: [id number] REPORT SERV DATE: 09/23/16 DICTATED BY: ОЛЬГА MARTINEZ DATE: 09/23/16 REPORT STATUS : Draft TRANSCRIBED BY: [employer] DATE: 09/23/16 anni is sharp. The tracheobronchial tree was examined to at least the first subsegmental level. Bronchial mucosa and anatomy are normal; there are no endobronchial lesions. Secretions were toileted. Bronchoalveolar lavage was performed in the right middle lobe of the lung and sent for cell count, cytology, bacterial culture, viral smears \T\ culture, and fungal and AFB analysis. 40 mL of fluid were instilled. 30 mL were returned. The return was cellular. The upper airway is edematous presumably from the prior Rigid bronchoscopy Impression: - The upper airway is edematous presumably from the prior Rigid bronchoscopy. - Bronchoalveolar lavage was performed. - Patient likely has tracheobronchitis Recommendation: - Await test results. - Chest X-ray. - Rx Doxycycline and Medrol Dose pack Attending Participation: I personally performed the entire procedure. MAX MARTINEZ MD 09/23/2016 10:22 AM This report has been signed electronically. Number of Addenda: 0 Note Initiated On: 09/23/2016 9:10 AM [address] [address]
[~2016-09-23 08:04] MED LIST changes: +CALCIUM CITRATE +D PO; +KLOR-CON 1010 MEQ PO; +LOP100 PO; +MELATONIN5 M1 PO; +MULTIVIT/MIN PO; +VITAMIN B-1 PO; +VITAMIN B-121000 MC1 PO
[2016-09-23 08:22] LABS: HEMATOCRIT 34.1 % (40.0-51.0); HEMOGLOBIN 9.8 g/dL (13.6-17.8); MANUAL DIFF YES %; MEAN CORPUS HGB CONC 28.7 g/dL (32.0-36.0); MEAN CORPUSCULAR HEMOGLOB 29.4 pg (26.0-34.0); MEAN CORPUSCULAR VOLUME 102.4 fL (80-100); MEAN PLATELET VOLUME 10.2 fL (9.2-13.0); PLATELET COUNT 271 10/3/uL (150-400); RBC DISTRIBUTION WIDTH 15.4 % (12.0-16.0); RED CELL COUNT 3.33 10/6/uL (4.7-6.1); WHITE BLOOD CELLS 8.7 10/3/uL (4.5-10.5)
[2016-09-23 08:27] LABS: PARTIAL THROMBO TIME 27.2 SEC (22.5-37.2); PROTIME (NOT ORD) 13.4 SEC (12.0-14.5)
[2016-09-23 08:34] LABS: CALCIUM, SERUM 8.9 MG/DL (8.5-10.4); CHLORIDE, SERUM 95 MMOL/L (96-112); CREATININE 1.43 MG/DL (0.70-1.30); GFR AFRICAN AMERICAN 68 ML/MIN (>=60); GFR NON AFRICAN AMERICAN 58 ML/MIN (>=60); GLUCOSE, SERUM 110 MG/DL (60-99); SODIUM, SERUM 140 MMOL/L (135-148)
[2016-09-23 08:36] LABS: BUN (BLOOD UREA NITROGEN) 23 MG/DL (6-23); CO2 (CARBON DIOXIDE) 36 MMOL/L (24-34); POTASSIUM, SERUM 3.9 MMOL/L (3.5-5.3)
[2016-09-23 08:40] LABS: BAND NEUTROPHILS 5 %; BASOPHILS 1 %; BASOPHILS ABSOLUTE (CALC) 0.09 10/3/uL (0.0-0.16); LYMPHOCYTES 27 %; LYMPHOCYTES ABSOLUTE (CALC) 2.35 10/3/uL (0.67-4.30); MACROCYTES 1+ (5-10/OIF) (0-5/OIF); MONOCYTES 20 %; MONOCYTES ABSOLUTE (CALC) 1.74 10/3/uL (0.21-1.20); NEUTROPHILS ABSOLUTE (CALC) 4.52 10/3/uL (2.02-8.40); PLATELET ESTIMATE ADQ (ADEQUATE); SEGMENTED NEUTROPHIL (0) 47 %; TOTAL NUCLEATED CELLS 100
[2016-09-23 14:38] LABS: BD FL LYMPH (NOT ORD) 4 %; BF BASO (NOT OF) 0 %; BF LARGE MONONUCLEAR 95 %; BF TOTAL CELL CT (NOT ORD 465 /MM3; BODY FLUID EOS (NOT ORD) 0 %; BODY FLUID RBC (NOT ORD) < 1000 /MM3; BODY FLUID SEG (NOT ORD) 1 %
[2016-09-23 14:39] LABS: BD FL SOURCE (NOT ORD) BRONCH
[2017-01-07] MEDS ORDERED: T PO (03:20)
[2017-01-07] MEDS ORDERED: ADDERALL12.5 MG PO (03:20)
[2017-01-07] MEDS ORDERED: Z100 PO (03:21)
[2017-01-07] MEDS ORDERED: ASABAYER PO (03:21)
[2017-01-07] MEDS ORDERED: L80 PO (03:23)
[2017-01-07] MEDS ORDERED: SYN.15 PO (03:24)
[2017-01-07] MEDS ORDERED: MULTIVIT/MIN PO (03:25)
[2017-01-07] MEDS ORDERED: VITC500 PO (03:25)
[2017-01-07] MEDS ORDERED: HEMOCYTE324 MG PO (03:30)
[2017-01-07] MEDS ORDERED: CALCIUM PO (03:31)
[2017-01-07] MEDS ORDERED: [UNRECOGNIZED DRUG - OTHER] PO (03:31)
[2017-01-07] MEDS ORDERED: CYANO1000T PO (03:32)
[2017-01-07] MEDS ORDERED: Z5 PO (03:33)
[2017-01-07] MEDS ORDERED: LOP100 PO (03:37)
[2017-01-07] MEDS ORDERED: KLONO1 PO (03:38)
[2017-01-07] MEDS ORDERED: KDUR10 PO (03:43)
[2017-01-07] MEDS ORDERED: ULTRAM50 PO (03:44)
[2017-01-07] MEDS ORDERED: ZOL50 PO (03:45)
[2017-01-07] MEDS ORDERED: FOLATE 400 MCG PO (03:47)
[2017-01-07] MEDS ORDERED: PEP20 PO (03:49)
[2017-01-07] MEDS ORDERED: MELATONIN5 M1 PO (03:49)
[2017-01-07] MEDS ORDERED: THIAMINE PO (03:51)
[2017-01-07] MEDS ORDERED: ZITHROMAX500 MG PO (03:52)
[2017-01-07] MEDS ORDERED: TESTOSTERONE IM (16:24)
[2017-01-07] MEDS ORDERED: SYN075 PO (16:25)
[2017-01-18] MEDS ORDERED: BACTRIM DS1 TAB PO (13:03)
[2017-01-18] MEDS ORDERED: SPIRIVA INH (13:03)
[2017-01-18] MEDS ORDERED: P10 PO (13:03)
[2017-01-18] MEDS ORDERED: ALBUTEROL5 INH (13:06)
[2017-01-18] MEDS ORDERED: FESO4 PO (13:07)
[2017-01-18] MEDS ORDERED: TESS PO (13:07)
[2017-01-18] MEDS ORDERED: DEXTROMETHORPHAN PO (13:12)
== END 2016-09-23 23:59 | disposition home or self-care (01) ==
LOC: DMU 08:04
PROVIDERS: Anesthesiology; Internal Medicine
PROC: 0B9D8ZX Drainage of Right Middle Lung Lobe, Via Natural or Artificial Opening Endoscopic, Diagnostic (ICD-10-PCS; principal; 2016-09-23 09:30)
DX: J39.8 Other specified diseases of upper respiratory tract (principal); J96.10 Chronic respiratory failure, unspecified whether with hypoxia or hypercapnia; I13.0 Hypertensive heart and chronic kidney disease with heart failure and stage 1 through stage 4 chronic kidney disease, or unspecified chronic kidney disease; N18.3 Chronic kidney disease, stage 3 (moderate); I50.9 Heart failure, unspecified; I48.0 Paroxysmal atrial fibrillation; I89.0 Lymphedema, not elsewhere classified; I27.81 Cor pulmonale (chronic); G25.81 Restless legs syndrome; G47.33 Obstructive sleep apnea (adult) (pediatric); E03.9 Hypothyroidism, unspecified; E66.01 Morbid (severe) obesity due to excess calories; K21.9 Gastro-esophageal reflux disease without esophagitis; F41.9 Anxiety disorder, unspecified; F43.10 Post-traumatic stress disorder, unspecified; F98.8 Other specified behavioral and emotional disorders with onset usually occurring in childhood and adolescence; H91.90 Unspecified hearing loss, unspecified ear; M19.90 Unspecified osteoarthritis, unspecified site; M10.9 Gout, unspecified; Z88.5 Allergy status to narcotic agent; Z88.0 Allergy status to penicillin; Z88.1 Allergy status to other antibiotic agents; Z88.2 Allergy status to sulfonamides; Z88.8 Allergy status to other drugs, medicaments and biological substances; Z90.49 Acquired absence of other specified parts of digestive tract; Z79.82 Long term (current) use of aspirin; Z79.2 Long term (current) use of antibiotics; Z79.899 Other long term (current) drug therapy; Z98.890 Other specified postprocedural states
CPT/HCPCS: 71010; 80048; 85025; 85610; 85730; 87015; 87070; 87077; 87102; 87116; 87186; 87205; 88112; 89051; 93005; J2250; J2370; J2405; J3010